=== PATIENT | female | born 1995 | race Caucasian/White ===

== ENCOUNTER 2017-01-06 08:15 | Inpatient (IN) | payer OTHER ==
[2017-01-06] MEDS ORDERED: Ondansetron HCl/PF 4 MG/2 ML Vial IVP PRN ×3 (08:17→14:23)
[2017-01-06] MEDS ORDERED: LR 500 ML/Oxytocin 10 units 500 ML IV SCH (08:17)
[2017-01-06] MEDS ORDERED: LR / Pitocin 40 units/1000 ml 1,000 ML IV PRN (08:17)
[2017-01-06] MEDS ORDERED: Acetaminophen 500 MG TAB PO PRN (08:17)
[2017-01-06] MEDS ORDERED: Diphenoxylate HCl/Atropine Tablet PO PRN ×2 (08:17)
[2017-01-06] MEDS ORDERED: HYDROcodone/Acetaminophen 5/325 mg Tablet PO PRN ×2 (08:17)
[2017-01-06] MEDS ORDERED: Lidocaine 1% (PF) 30 ML VIAL SC PRN (08:17)
[2017-01-06] MEDS ORDERED: Ibuprofen 800 MG TAB PO PRN (08:17)
[2017-01-06] MEDS ORDERED: Zolpidem Tartrate 5 MG TAB PO PRN (08:17)
[2017-01-06] MEDS ORDERED: Misoprostol 200 MCG TAB PR PRN (08:17)
[2017-01-06] MEDS ORDERED: Promethazine HCl 25 MG/ML VIAL IM PRN ×2 (08:17→10:24)
[2017-01-06 08:21] VITALS: BMI 22.4
[2017-01-06] MEDS ORDERED: Oxytocin 10 UNITS/ML VIAL ONE (08:26)
[2017-01-06 08:32] LABS: Hematocrit 37.5 % (36.0-47.0); Mean Platelet Volume 6.3 fL (7.4-10.4); Red Blood Cell (RBC) Count 3.85 mill/uL (4.20-5.40); White Blood Cell (WBC) Count 8.7 thou/uL (4.8-10.8)
[2017-01-06] MEDS ORDERED: Fentanyl 4 mcg/Marc 0.1% Cadd 100 ML ONE (08:40)
[2017-01-06] MEDS ORDERED: FLU VACC QS2017-18 36 mo. & older 0.5 ML SYRINGE IM ONE (08:45)
[2017-01-06] MEDS ORDERED: ePHEDrine/0.9% NaCl/PF SYRINGE 50 mg/10 ml SLOW IVP PRN (10:24)
[2017-01-06] MEDS ORDERED: Eucerin (Mineral Oil/Petrolatum,White) 30 gm Jar TOP PRN (10:24)
[2017-01-06] MEDS ORDERED: Lactated Ringer's 500 ML IV PRN (10:24)
[2017-01-06] MEDS ORDERED: diphenhydrAMINE 50 MG/ML VIAL IVP PRN (10:24)
[2017-01-06] MEDS ORDERED: Naloxone HCl 0.4 mg/ml Vial IVP PRN ×2 (10:24)
[2017-01-06] MEDS ORDERED: Acetaminophen 325 MG TAB PO PRN (10:24)
[2017-01-06] MEDS ORDERED: Communication Order-Pharmacy FS SCH (10:30)
[2017-01-06] MEDS ORDERED: Fentanyl 4mcg/Marcaine 0.1% Cassette 100 ML EPIDURAL SCH (10:30)
[2017-01-06] MEDS: LR / Pitocin 40 units/1000 ml 1,000 ML IV SCH ×2 (14:20→15:30)
[2017-01-06] MEDS ORDERED: Preparation H Ointment 28 GM TUBE PR PRN (14:23)
[2017-01-06] MEDS ORDERED: Milk Of Magnesia 30 ML UDCUP PO PRN (14:23)
[2017-01-06] MEDS ORDERED: diphenhydrAMINE 25 MG CAP PO PRN (14:23)
[2017-01-06] MEDS ORDERED: Lanolin Ointment 7 GM TUBE TOP PRN (14:23)
[2017-01-06] MEDS ORDERED: Adacel (T-DAP) 0.5 ML VIAL IM ONE (14:23)
[2017-01-06] MEDS ORDERED: Benzocaine/Menthol 20-0.5% 60 ML CAN TOP PRN (14:23)
[2017-01-06] MEDS ORDERED: Bisacodyl 10 MG SUPP PR PRN (14:23)
[2017-01-06] MEDS: Ferrous Sulfate 325 MG TAB PO SCH (19:04)
[2017-01-06] MEDS ORDERED: Bupivacaine 0.25% 10 ML VIAL ONE (22:32)
[2017-01-06] MEDS ORDERED: ePHEDrine/0.9% NaCl/PF SYRINGE 50 mg/10 ml ONE (22:32)
[2017-01-06] MEDS: Docusate Calcium (SURFAK) 240 MG CAP PO SCH (22:51)
[2017-01-06] MEDS: Ibuprofen 800 MG TAB PO SCH ×2 (23:00→23:41)
[2017-01-07] MEDS: Ibuprofen 800 MG TAB PO SCH ×2 (06:29→14:14)
[2017-01-07] MEDS: Ferrous Sulfate 325 MG TAB PO SCH ×2 (07:09→18:26)
[2017-01-07] MEDS ORDERED: Prenatal Vitamin 1 TAB PO SCH (09:00)
[2017-01-07] MEDS: Docusate Calcium (SURFAK) 240 MG CAP PO SCH (09:19)
[2017-01-07] MEDS ORDERED: Acetaminophen/Codeine 30-300mg Tablet PO PRN ×2 (14:23)
[2017-01-07] MEDS ORDERED: Zolpidem Tartrate 5 MG TAB PO PRN (14:27)
[2017-01-07 18:59] VITALS: BP 113/79; TEMP 98.1
== END 2017-01-07 19:00 | disposition home or self-care (01) | DRG 775 ==
LOC: L&D/OP 08:15 → L&D 08:16 → 3SW 17:02
PROVIDERS: ADMIT Obstetrics & Gynecology; ATTEND Obstetrics & Gynecology
PROC: 10E0XZZ Delivery of Products of Conception, External Approach (ICD-10-PCS; principal; 2017-01-06)
PROC: 3E0P3VZ Introduction of Hormone into Female Reproductive, Percutaneous Approach (ICD-10-PCS; 2017-01-06)
DX: O80 Encounter for full-term uncomplicated delivery (principal); Z37.0 Single live birth; Z3A.40 40 weeks gestation of pregnancy
CPT/HCPCS: 85027; 86780; 87340; 90715; J2590; J7120; S0020

== ENCOUNTER 2018-10-05 04:03 | Day surgery (SDC) | payer OTHER ==
[2018-10-05 04:32] VITALS: BP 106/69; TEMP 98.4; BMI 22.3
[2018-10-05] MEDS ORDERED: hydrALAZINE 20 MG/ML VIAL SLOW IVP PRN (05:35)
--- NOTE | 2018-10-05 08:46 | PRG ---
DATE OF SERVICE: 10/05/2018 PRIMARY OB: Nurys Hay CNM CHIEF COMPLAINT: Abdominal pain. HISTORY OF PRESENT ILLNESS: The patient is a 23-year-old G3, P2 female with an intrauterine at 40 weeks and 5 days, who is presenting to Labor and Delivery with uterine contractions. The patient reports that she has been having contractions since earlier this morning or late last night and is here to evaluate for labor. The patient denies any vaginal bleeding. She has had a mucusy discharge. Denies any complications with this . PAST MEDICAL HISTORY: Significant for pyelonephritis in a previous . PAST SURGICAL HISTORY: Negative. ALLERGIES: NO KNOWN DRUG ALLERGIES. SOCIAL HISTORY: Denies drug, alcohol or tobacco use. MEDICATIONS: vitamins. REVIEW OF SYSTEMS: The patient denies any fever, fall, headache, chest pain, shortness of breath, significant nausea, vomiting, diarrhea, constipation, hip problems, knee problems, muscle weakness, any new rashes, any vaginal bleeding, urinary urgency or frequency. PHYSICAL EXAMINATION: VITAL SIGNS: Blood pressure 106/69, heart rate of 79, respiratory rate 18, and temperature 98.4. GENERAL: She appears to be in no acute distress. She is alert, oriented, cooperative, and pleasant to interact with. HEAD: Normocephalic and atraumatic. LUNGS: Clear to auscultation bilaterally. HEART: Regular rate and rhythm. ABDOMEN: Gravid and soft, nontender. EXTREMITIES: Nontender and nonedematous. CERVICAL: Cervical exam per nursing staff is 2, 50 , and -3 station. heart tracing shows fetus with a baseline in the 130s with moderate long-term variability, positive 15 x 15 accelerations, no decelerations. Contractions are appearing about every 8 to 10 minutes. ASSESSMENT AND PLAN: The patient is a 23-year-old G3, P2 female with an intrauterine at 40 weeks and 5 days, who is here for evaluation of labor. The patient at this point has no evidence of active labor. She will be re-evaluated in the next couple of hours for cervical change. Should the patient experience no change, she will be discharged home. She has followup with her primary OB in the very near future, Tuesday. She has been given term labor precautions. Fetus has a reactive NST and category 1 tracing. Job ID: [id number]
== END 2018-10-05 07:06 | disposition home or self-care (01) ==
LOC: L&D/OP 04:03
PROVIDERS: ATTEND Obstetrics & Gynecology
DX: O47.1 False labor at or after 37 completed weeks of gestation (principal); O48.0 Post-term pregnancy; Z3A.40 40 weeks gestation of pregnancy
CPT/HCPCS: 99283